=== PATIENT | male | born 1975 | race Caucasian/White ===

== ENCOUNTER 2020-01-18 20:34 | Emergency (ER) | payer OTHER ==
[~2020-01-18] VITALS: Ht 175.3 cm; Wt 108.0 kg
[2020-01-18 20:40] VITALS: BP_SYST 147
--- NOTE | 2020-01-18 20:45 | NUR ---
Patient to ER bed 4 to gown for evaluation. Side rails up. Report given to Janna valdivia.
--- NOTE | 2020-01-18 20:57 | NUR ---
Patient is ambulatory and AAO x 4 c/o left leg pain. Pt recently diagnosed with DVT 6 days ago and has been taking Eliquis. Pt states pain has progessively gotten worse and feels numbness to foot. Per pt, " I feel like it's moving." Pt denies SOB or chest pain. No other injuries/complaints per patient or noted.
--- NOTE | 2020-01-18 21:01 | NUR ---
ER Dr. Giraldo at bedside examining patient.
[2020-01-18] MEDS ORDERED: fentaNYL CITRATE/PF 100 MCG/2 ML AMP ONE (21:21)
[2020-01-18 21:30] LABS: EOSINOPHILS # (AUTO) 0.2 K/uL (0.0-0.4); HEMATOCRIT 43.3 % (36-54); HEMOGLOBIN 15.2 g/dL (14.0-18.0); MEAN CORPUSCULAR HEMOGLOBIN 32 pg (27-31); MONOCYTES # (AUTO) 0.5 K/uL (0.0-1.0)
[2020-01-18] MEDS ORDERED: KETOROLAC TROMETHAMINE 15 MG VIAL IVP ONE (21:30)
[2020-01-18] MEDS ORDERED: fentaNYL CITRATE/PF 100 MCG/2 ML AMP IVP ONE (21:30)
[2020-01-18 21:36] LABS: BASOPHILS % (AUTO) 0.4 % (0.0-2.0); EOSINOPHILS % (AUTO) 2.7 % (0.0-4.0); LYMPHOCYTES # (AUTO) 1.8 K/uL (1.0-5.5); LYMPHOCYTES % (AUTO) 23.6 % (20.5-51.5); MEAN CORPUSCULAR HGB CONC 35 % (32-36); MEAN CORPUSCULAR VOLUME 90 fL (79.0-98.0); MONOCYTES % (AUTO) 6.6 % (1.7-9.3); NEUTROPHILS % (AUTO) 66.7 % (40.0-70.0); PLATELET COUNT (AUTO) 249 K/uL (130-430); RED BLOOD CELL COUNT(AUTO) 4.82 MIL/uL (4.2-6.2); RED CELL DISTRIBUTION WIDTH 12.8 % (9.0-15.0); WHITE BLOOD COUNT (AUTO) 7.5 K/uL (4.8-10.8)
[2020-01-18 21:42] LABS: PROTHROMBIN TIME 10.4 SECS (9.5-12.5)
[2020-01-18 21:44] LABS: CALCIUM 8.4 mg/dL (8.4-11.0); CREATININE 1.03 mg/dL (0.55-1.30); POTASSIUM 3.9 mmol/L (3.5-5.1)
[2020-01-18 21:55] LABS: ALBUMIN 3.6 g/dL (3.4-4.8); TOTAL BILIRUBIN 0.4 mg/dL (0.0-1.0)
--- NOTE | 2020-01-18 21:56 | NUR ---
Ultrasound at bedside. Pt tolerated well.
[2020-01-18 23:24] VITALS: BP_SYST 136
--- NOTE | 2020-01-18 23:24 | NUR ---
Patient given written and verbal discharge instructions and verbalizes understanding. ER MD discussed with patient the results and treatment provided. Patient in stable condition. ID arm band removed. IV catheter removed intact and dressing applied, no active bleeding. Rx of Tylenol with codeine given. Patient educated on pain management and to follow up with PMD. Pain Scale 0. Opportunity for questions provided and answered. Medication side effect fact sheet provided.
== END 2020-01-18 23:24 | disposition home or self-care (01) ==
LOC: SED 20:34
DX: I82.492 Acute embolism and thrombosis of other specified deep vein of left lower extremity (principal)
CPT/HCPCS: 36415; 73590; 80053; 85025; 85610; 85730; 93971; 96374; 96375; 99285; J1885; J3010

== ENCOUNTER 2020-01-19 13:50 | Emergency (ER) | payer OTHER ==
[~2020-01-19] VITALS: Ht 175.3 cm; Wt 104.3 kg
[2020-01-19 14:18] VITALS: BP_SYST 121
--- NOTE | 2020-01-19 14:23 | NUR ---
Patient triaged and placed in waiting room. VSS and patient appears in no acute distress at this time. Awaiting available bed, and MD notified of need for MSE.
--- NOTE | 2020-01-19 15:38 | NUR ---
Patient left without being seen.
[2020-01-19 15:51] VITALS: BP_SYST 121
== END 2020-01-19 15:38 | disposition left against medical advice (07) ==
LOC: SED 13:50
DX: M79.605 Pain in left leg (principal); Z53.21 Procedure and treatment not carried out due to patient leaving prior to being seen by health care provider